=== PATIENT | female | born 1965 | race Caucasian/White ===

== ENCOUNTER 2025-03-02 15:38 | Outpatient (AMB) | payer BC, SELFPAY ==
--- NOTE | 2025-03-02 15:43 | A.OFFPC_ITS ---
Vital Signs 03/02/25 16:01 Height 5 ft 7.76 in Weight 190 lb BMI 29.1 BP 140/94 H Blood Pressure Location Rt brachial Position Sitting Respiration 16 Pulse 79 Pulse Source Pulse Oximeter Temp 98.1 F Temp Source Oral Pulse Oximetry (%) 98 Oxygen Delivery Method Room Air Intake Visit Reasons: DAIRY TESTER // Crohn's Disease Intake Note: establish care and crohn's disease Computer Hardware Developer Required: No Accompanied by: Self / Same As Patient Allergies doxycycline Allergy (Mild, Verified 03/02/25 15:51) mental health Sulfa (Sulfonamide Antibiotics) Allergy (Mild, Verified 03/02/25 15:51) advers reaction Medication List - Last Reconciled 03/02/25 by Cade Corcoran MD infliximab (Remicade) IV levothyroxine (Tirosint) 75 mcg PO DAILY liothyronine 5 mcg PO DAILY losartan 25 mg PO DAILY Tobacco use date assessed: 03/02/25 Dental Screening Dental Screen Date: 03/02/25 Did you have a dental visit in the last 12 months?: No Did you have a dental problem in the last 6 months where you did not have access to dental care?: No Was dental information given to patient?: No HPI HPI Comments History of Present Illness Details History of Present Illness The patient is a 60-year-old female presenting for the establishment of care and management of chronic conditions. Recently moved from [place] to [place] lives in [place] comes to establish care with a primary care doctor and specialist she has a history of Crohn's disease and receives infusions Crohn's disease: - The patient has a history of Crohn's d isease and is currently on Remicade therapy. - She recently moved from [place] to [facility] and needs to establish care with a ditch digger. Hypothyroidism: - The patient has hypothyroidism managed with liothyronine and levothyroxine due to absorption issues with standard medications. - She has been stable on this regimen fo r over five years. Hypertension: - The patient is on losartan for hyperte nsion management. - She reports recent stress and lack of sleep due to personal circumstances, which may have affected her blood pressure readings. 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 - She missed her last scheduled imaging due to relocation. Obstructive sleep apnea: - The patient uses a CPAP machine for ob structive sleep apnea and requires a pulmonology referral for continued care. Health Maintenance - Screening mammogram and ultrasound of the right breast for monitoring radial scar. - Comprehensive metabolic panel, complet e blood count, lipid panel, and other lab tests to monitor overall health. Review of Systems - Cardiovascular: Reports hypertension, denies chest pain. - Endocrine: Reports hypothyroidism, man aged with medication. - Gastrointestinal: Reports Crohn's dise ase, managed with Remicade. - Respiratory: Reports obstructive sleep apnea, uses CPAP. - Musculoskeletal: Reports joint and mus carlotta pain, possibly related to losartan. 10-point ROS reviewed and negative excep t as noted in HPI Past Medical History - Crohn's disease, managed with Remicade . - Hypothyroidism, managed with liothyron ine and levothyroxine. - Hypertension, managed with losartan. - Radial scar in the breast, monitored w ith imaging. - Obstructive sleep apnea, uses CPAP. Physical Exam General: Well-appearing, in no acute distress. Vital signs: Within normal limits. HEENT: Normocephalic, atraumatic. PERRLA, EOMI. Conjunctiva clear, sclera anicteric. Oropharynx clear, mucous membranes moist. TMs intact bilaterally. Neck: Supple, no lymphadenopathy, no thyromegaly, no JVD or carotid bruits. Cardiovascular: RRR, normal S1/S2, no murmurs, rubs, or gallops. Peripheral pulses 2+ and symmetric. No edema. Respiratory: Lungs clear to auscultation bilaterally, no wheezes, rales, or rhonchi. Normal effort. Abdomen: Soft, non-tender, non-distended. Normoactive bowel sounds. No hepatosplenomegaly, no masses. MSK: Full range of motion, no joint swelling or deformity. Normal gait. Skin: Warm, dry, intact. No rashes, lesions, or pallor. Neuro: Alert and oriented x3. Cranial nerves II-XII intact. Strength 5/5 throughout. Sensation intact. Reflexes 2+ symmetric. Normal coordination and gait. Psych: Appropriate mood and affect. Normal judgment and insight. Discussion Notes During the visit, we discussed the need for referrals to gastroenterology, endocrinology, and pulmonology to establish care for ongoing management of Crohn's disease, hypothyroidism, and obstructive sleep apnea. We also reviewed the importance of regular imaging for monitoring the radial scar in the breast. I recommended a comprehensive set of lab tests to assess overall health, including a complete blood count, metabolic panel, and lipid profile. We also discussed the potential use of CoQ10 to address muscle pain possibly related to losartan use. Plan 1. Crohn's Disease - Plan to establish care with a gastroen terologist for continued management of Crohn's disease and Remicade therapy which requires her to visit at [facility] 2. Hypothyroidism - Continue current thyroid hormone repla cement therapy with liothyronine and levothyroxine. - Referral to endocrinology for ongoing management. 3. Hypertension - Continue losartan for blood pressure m anagement. - Consider CoQ10 supplementation to addr ess muscle pain. 4. Other specified disorders of breast N64.89 - she has radial scarring of the right b reast which is followed with Q 6 monthly mammograms and ultrasound Continue regular imaging with mammograms and ultrasounds every six months. 5. Obstructive sleep apnea (adult) (pedi atric) G47.33 - Referral to pulmonology for continued management of obstructive sleep apnea and CPAP supplies. Patient Instructions - Follow up with gastroenterology, endoc rinology, and pulmonology as referred. - Continue current medications as prescr ibed. - Consider trying CoQ10 for muscle pain relief. - Schedule regular imaging for breast mo nitoring. - Complete lab tests as ordered to monit or overall health. [facility] Family History (Updated 03/02/25 @ 15:57 by Erin Torrez MA) Father Hypothyroid High blood pressure Mother Hypothyroid H/O: hysterectomy Social History (Updated 03/02/25 @ 15:57 by Erin Torrez MA) Housing: House Alcohol intake: current Alcohol intake frequency: a few times a month Patient Tobacco Use Status: Former Tobacco user service: No Current occupational status: retired Cognitive needs: No Hearing needs: No Vision needs: Yes (rxglasses) Questionnaire PHQ-9 Over the last 2 weeks, how often have you been bothered by any of the following problems? 1. Little interest or pleasure in doing things: not at all 2. Feeling down, depressed, or hopeless: several days 3. Trouble falling or staying asleep, or sleeping too much: several days 4. Feeling tired or having little energy: several days 5. Poor appetite or overeating: not at all 6. Feeling bad about yourself - or that you are a failure or have let yourself or your family down: several days 7. Trouble concentrating on things, such as reading the newspaper or watching television: several days 8. Moving or speaking so slowly that other people could have noticed. Or the opposite - being so fidgety or restless that you have been moving around a lot more than usual: not at all 9. Thoughts that you would be better off or of hurting yourself in some way: not at all Total score: 5 Depression Screening Interpretation: Positive Depression Screening Done: Yes Source: Developed by Drs. Niels Cooper, Mery Arauz, Pedro Sky and colleagues, with an educational serafin from [employer]. Thrive Questionnaire Date Thrive assessed: 03/02/25 I am a: Patient What is your living situation today?: I have a steady place to live Within the past 12 months, did the food you bought not last and you didn't have the money to get more?: Never true Within the past 12 months, did you worry whether your food would run out before you got money to buy more?: Never true Do you have trouble paying for medicines?: No Do you have trouble getting transportation to medical appointments?: No Do you have trouble paying your heating and electricity bill?: No Do you have trouble taking care of your child, family member or friend?: No Do you have trouble with day-to-day activities such as bathing, preparing meals, shopping, managing finances, etc.?: No Are you currently unemployed and looking for a job?: No Are you interested in more education?: No Please select the resources that you would like help with: None Currently or been in a relationship where the following occur: No concerns reported THRIVE Score: 0 AUDIT C Alcohol Use Questionnaire (AUDIT-C) 1. How often do you have a drink containing alcohol?: 2-4 times a month 2. How many drinks containing alcohol do you have on a typical day when you are drinking?: 1 or 2 3. How often do you have six or more drinks on one occasion?: Never Total Score: 2 GIUSEPPE-7 AMB Questionnaire GIUSEPPE-7 Date GIUSEPPE - 7 assessed: 03/02/25 Feeling nervous, anxious, or on edge: 1 = Several days Not being able to stop or control worryin = Several days Worrying too much about different things: 1 = Several days Trouble relaxin = Several days Being so restless that it is hard to sit still: 1 = Several days Becoming easily annoyed or irritable: 1 = Several days Feeling afraid as if something awful might happen: 1 = Several days Total GIUSEPPE-7 score (0-4 normal; 5-9 mild; 10-14 moderate; 15-21 severe): 7 Source: Developed by Drs. Niels Cooper, Mery Arauz, Pedro Sky and colleagues, with an educational serafin from [employer]. Physical exam (Primary Care) Vital Signs: Last Vital Signs Temp 98.1 F 03/02/25 16:01 Pulse 79 03/02/25 16:01 Resp 16 03/02/25 16:01 BP 140/94 H 03/02/25 16:01 Pulse Ox 98 03/02/25 16:01 Oxygen Delivery Method Room Air 03/02/25 16:01 BMI result Body Mass Index 29.1 Tobacco/Smoking Status: Tobacco use Status Tobacco use date assessed 03/02/25 03/02/25 15:47 Patient Tobacco Use Status Former Tobacco user 03/02/25 16:04 PHQ-9: PHQ-9 Score PHQ-9: Total score 5 03/02/25 15:47 Depression Screening Interpretation: Positive Thrive Assessment: Date of Thrive Assessment Date Thrive assessed 03/02/25 03/02/25 15:47 Currently or been in a relationship where the following occur: No concerns reported Coding Level of Care Code New Pt Level 3 (29285) Diagnoses Encounter to establish care Z76. Routine lab draw Z01.89 Encounter for screening, unspecified Z13.9 Counseling, unspecified Z71.9 Crohn's disease with complication, unspecified gastrointestinal tract location K50.919 Gastrointestinal tract location: unspecified location Digestive disease complication type: unspecified complication Hypothyroidism, unspecified type E03.9 Hypothyroidism type: unspecified Radial scar of right breast N64.89 Hypertension I10 Obstructive sleep apnea G47.33 Adjustment disorder F43.20 Assessment & Plan Assessment & Plan (1) Encounter to establish care: Code(s): Z76.89 - Persons encountering health services in other specified circumstances (2) Routine lab draw: Code(s): Z01.89 - Encounter for other specified special examinations (3) Encounter for screening, unspecified: Code(s): Z13.9 - Encounter for screening, unspecified (4) Counseling, unspecified: Code(s): Z71.9 - Counseling, unspecified (5) Crohn's disease: Code(s): K50.90 - Crohn's disease, unspecified, without complications Qualifiers: Gastrointestinal tract location: unspecified location Digestive disease complication type: unspecified complication Qualified Code(s): K50.919 - Crohn's disease, unspecified, with unspecified complications (6) Hypothyroid: Code(s): E03.9 - Hypothyroidism, unspecified Qualifiers: Hypothyroidism type: unspecified Qualified Code(s): E03.9 - Hypothyroidism, unspecified (7) Radial scar of right breast: Code(s): N64.89 - Other specified disorders of breast (8) Hypertension: Code(s): I10 - Essential (primary) hypertension (9) Obstructive sleep apnea: Code(s): G47.33 - Obstructive sleep apnea (adult) (pediatric) (10) Adjustment disorder: Code(s): F43.20 - Adjustment disorder, unspecified Plan Orders: Orders Complete Blood Count Auto Diff Today Z13.9 - Encounter for screening, unspecified, Z76.89 - Persons encountering health services in other specified circumstances Hemoglobin A1c Today Z13.9 - Encounter for screening, unspecified, Z76.89 - Persons encountering health services in other specified circumstances Hepatitis B Surface Antibody Today Z13.9 - Encounter for screening, unspecified, Z76.89 - Persons encountering health services in other specified circumstances Hepatitis C Antibody Today Z13.9 - Encounter for screening, unspecified, Z76.89 - Persons encountering health services in other specified circumstances Magnesium Today Z13.9 - Encounter for screening, unspecified, Z76.89 - Persons encountering health services in other specified circumstances UA CC w/rflx Micro + Cult Today Z13.9 - Encounter for screening, unspecified, Z76.89 - Persons encountering health services in other specified circumstances Vitamin D 1,25 dihydroxy Today Z13.9 - Encounter for screening, unspecified, Z76.89 - Persons encountering health services in other specified circumstances US breast RT complete Today N64.89 - Other specified disorders of breast Comprehensive Met. Panel Today Z13.9 - Encounter for screening, unspecified, Z76.89 - Persons encountering health services in other specified circumstances Hepatitis B Surface Antigen Today Z13.9 - Encounter for screening, unspecified, Z76.89 - Persons encountering health services in other specified circumstances HIV Ab/Ag Today Z13.9 - Encounter for screening, unspecified, Z76.89 - Persons encountering health services in other specified circumstances Lipid Panel Today Z13.9 - Encounter for screening, unspecified, Z76.89 - Persons encountering health services in other specified circumstances Syphilis Screen Today Z13.9 - Encounter for screening, unspecified, Z76.89 - Persons encountering health services in other specified circumstances Vitamin B12 and Folate Today Z13.9 - Encounter for screening, unspecified, Z76.89 - Persons encountering health services in other specified circumstances MM screening mammo BI Today Z12.31 - Encounter for screening mammogram for malignant neoplasm of breast, Z13.9 - Encounter for screening, unspecified TSH reflex Free T4 Today Z76.89 - Persons encountering health services in other specified circumstances Referrals Gastroenterology Referral K50.90 - Crohn's disease, unspecified, without complications Endocrinology Referral E03.9 - Hypothyroidism, unspecified Pulmonology Referral G47.33 - Obstructive sleep apnea (adult) (pediatric)
[2025-03-02 16:01] VITALS: BP 140/94; PULSE 79; RESP 16; TEMP 36.7; O2SAT 98; BMI 29.1
--- OUTSIDE RECORDS SUMMARY | 2025-03-02 19:01 | XMS_ITS | Encounter Summary ---
Author Organization [facility] Health Address [address] [place] [address] Care Team Providers Care Musical Instruments Assembler Name Role Phone Unavailable Primary Care Provider Unavailabl e Prior Encounters Date Type Department Care Team Description 07/05/2019 Converted 13x Documents [facility] [address] [place] [address] <No scans attached> 07/05/2019 Converted CPS Chart Documents [facility] [address] [place] [address] <No scans attached> Plan of Treatment Not on file Procedures Procedure Name Priority Date/Time Associated Diagnosis Comments 31 O AMALGAM 1 SURFACE Routine 2 2:00 AM CDT 31 B AMALGAM 1 SURFACE Routine 2 2:00 AM CDT 30 B AMALGAM 1 SURFACE Routine 2 2:00 AM CDT 19 B AMALGAM 1 SURFACE Routine 2 2:00 AM CDT 18 B AMALGAM 1 SURFACE Routine 2 2:00 AM CDT SCALING IN PRESENCE OF GENERALIZED MODERATE OR SEVERE GINGIVAL INFLAMMATION Routine 09/03/2021 2:00 AM CDT ORAL HYGIENE INSTRUCTIONS Routine 2021 2:00 AM CDT 1 FM IRR W/GROSS SCALE Routine 2 2:00 AM CDT COMPREHENSIVE ORAL EVALUATION - NEW OR ESTABLISHED PATIENT Routine 09/03/2021 2:00 AM CDT PANORAMIC RADIOGRAPHIC IMAGE Routine 09/03/2021 2:00 AM CDT INTRAORAL - COMPREHENSIVE SERIES OF RADIOGRAPHIC IMAGES Routine 09/03/2021 2:00 AM CDT INTRAORAL PHOTO Routine 09/03/2021 2:00 AM CDT INTRAORAL PHOTO Routine 09/03/2021 2:00 AM CDT INTRAORAL PHOTO Routine 09/03/2021 2:00 AM CDT INTRAORAL PHOTO Routine 09/03/2021 2:00 AM CDT 2 DOL COMPOSITE FILLING Routine 09/04/19 2:00 AM CDT 15 LO COMPOSITE FILLING Routine 09/04/19 2:00 AM CDT 30 O COMPOSITE FILLING Routine 2 2:00 AM CDT 18 O COMPOSITE FILLING Routine 2 2:00 AM CDT 14 O COMPOSITE FILLING Routine 2 2:00 AM CDT 3 O COMPOSITE FILLING Routine 09/03/2021 2:00 AM CDT CANCELLED APPOINTMENT Routine 07/10/2020 2:00 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
--- OUTSIDE RECORDS SUMMARY | 2025-03-02 19:01 | XMS_ITS | Clinical Summary ---
Author Organization [facility] Health Address [address] [facility] [place] [address] Care Team Providers Care Collar Tacker Name Role Phone Unavailable Primary Care Provider Unavailabl e Social History Tobacco Use Types Packs/Day Years Used Date Smoking Tobacco: Never Assessed Comments Unknown Sex and Gender Information Value Date Recorded Sex Assigned at Not on file Legal Sex Female 9:06 PM PST Gender Identity Not on file Sexual Orientation Not on file Plan of Treatment Not on file Insurance [facility] PPO
== END 2025-03-02 16:37 | disposition home or self-care (01) ==
LOC: HO.HMCFMS 15:39
PROVIDERS: PCP Student in an Organized Health Care Education/Training Program; Visit Provider Student in an Organized Health Care Education/Training Program
DX: K50.919 Crohn's disease, unspecified, with unspecified complications (principal); E03.9 Hypothyroidism, unspecified; N64.89 Other specified disorders of breast; I10 Essential (primary) hypertension; G47.33 Obstructive sleep apnea (adult) (pediatric); F43.20 Adjustment disorder, unspecified

== ENCOUNTER 2025-03-08 11:55 | Outpatient (REF) | payer BC, SELFPAY ==
--- OUTSIDE RECORDS SUMMARY | 2025-03-08 14:48 | XMS_ITS | Clinical Summary ---
Author Organization [facility] Health Address [address] [facility] [place] [address] Care Team Providers Care Certified Alcohol Counselor Name Role Phone Unavailable Primary Care Provider Unavailabl e Social History Tobacco Use Types Packs/Day Years Used Date Smoking Tobacco: Never Assessed Comments Unknown Sex and Gender Information Value Date Recorded Sex Assigned at Not on file Legal Sex Female 9:06 PM PST Gender Identity Not on file Sexual Orientation Not on file Plan of Treatment Not on file Insurance [facility] PPO
--- OUTSIDE RECORDS SUMMARY | 2025-03-08 14:48 | XMS_ITS | Encounter Summary ---
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
[2025-03-08 18:41] LABS: MANUAL DIFF FLAG NO
[2025-03-08 18:43] LABS: Hematocrit 40.1 % (37.0-47.0); Hemoglobin 12.8 g/dl (12.0-16.0); Imm Gran Abs Auto 0.02 X10*3/uL (0.00-0.03); Imm Gran Pct Auto 0.3 % (0.0-0.4); Lymphocytes Absolute Auto 2.8 X10*3/uL (1.2-4.9); Mean Corpuscular HGB Conc 31.9 g/dl (31.0-35.0); Mean Corpuscular Hemoglobin 27.5 pg (27.0-33.0); Mean Corpuscular Volume 86.1 fL (80.0-98.0); NRBC Abs Auto 0.000 X10*3/uL (0.0-0.012); NRBC Pct Auto 0.0 /100WBC (0.0-0.2); Platelet Count 299 X10*3/uL (160-400); Red Blood Count 4.66 X10*6/uL (4.20-5.50); White Blood Count 7.3 X10*3/uL (4.8-10.8)
[2025-03-08 18:55] LABS: Appearance Urine Clear; Glucose Urine UA Negative (Negative); PH 6.0 (5.0-9.0); Specific Gravity - Urine 1.020 (1.005-1.025)
[2025-03-08 19:05] LABS: Hemoglobin A1C 133.7185 umol/L; Total Hemoglobin (HGBA1C) 3350.0970 umol/L
[2025-03-08 19:08] LABS: Alanine Aminotransferase 24 U/L (0-31); Albumin Level 4.6 g/dL (3.5-5.0); Alkaline Phosphatase 60 U/L (39-117); Anion Gap 13 (12-20); Aspartate Amino Transferase 27 U/L (5-31); Blood Urea Nitrogen 17 mg/dL (9-16); Calcium 9.5 mg/dL (8.4-10.2); Carbon Dioxide 27 mmol/L (22-29); Chloride 107 mmol/L (96-108); Cholesterol 225 mg/dL (<200); Estimated Glomerular Filt Rate > 60; HDL Cholesterol 82 mg/dL (>40); Magnesium 2.0 mg/dL (1.6-2.6); Potassium 3.6 mmol/L (3.3-5.1); Sodium 143 mmol/L (135-145); Total Protein 8.0 g/dL (6.5-8.0); Triglycerides 118 mg/dL (<150)
[2025-03-08 19:35] LABS: Folate 12.1 ng/mL (> or = 4.0); Vitamin B12 593 pg/mL (200-900)
[2025-03-09 08:54] LABS: HBS Num1 0.72 mIU/mL (0-7.99); HIV Num 1 0.06 S/CO (0.00-0.99); ~HepC Num1 0.07 S/CO (0.00-0.79); ~Hepatitis B Surface Antibody NONREACTIVE (Nonreactive); ~Hepatitis C Antibody Nonreactive (Nonreactive)
[2025-03-09 09:11] LABS: Syphilis Screen Nonreactive (Nonreactive)
[2025-03-09 09:56] LABS: HBsAGNum1 0.28 S/CO (0.00-0.99); Hepatitis B Surface Antigen Negative (Negative)
[2025-03-12 15:18] LABS: VITAMIN D (1,25 OH) D3 46 pg/mL; Vit D (1,25-Dihydroxy) Total 46 pg/mL (18-72); Vitamin D (1,25 OH) D2 <8 pg/mL
== END 2025-03-08 11:56 | disposition home or self-care (01) ==
LOC: HO.HKASLDS 11:55
PROVIDERS: Visit Provider Student in an Organized Health Care Education/Training Program
DX: Z01.84 Encounter for antibody response examination (principal); Z11.4 Encounter for screening for human immunodeficiency virus [HIV]; Z13.29 Encounter for screening for other suspected endocrine disorder; Z13.6 Encounter for screening for cardiovascular disorders; Z13.1 Encounter for screening for diabetes mellitus; Z13.89 Encounter for screening for other disorder; Z76.89 Persons encountering health services in other specified circumstances
CPT/HCPCS: 36415; 80053; 80061; 81003; 82607; 82652; 82746; 83036; 83735; 84443; 85025; 86706; 86780; 86803; 87340; 87389

== ENCOUNTER 2025-03-17 10:29 | Outpatient (AMB) | payer BC, SELFPAY ==
--- NOTE | 2025-03-17 10:48 | A.OFFVIS_ITS ---
Intake Visit Reasons: Crohn's disease Intake Note: Patient new consult for Crohn's disease. Patient cc: abdominal pain with bloating, with loose stool. Meat Carrier Required: No Accompanied by: Spouse Allergies doxycycline Allergy (Mild, Verified 03/02/25 15:51) mental health Sulfa (Sulfonamide Antibiotics) Allergy (Mild, Verified 03/02/25 15:51) advers reaction HPI HPI Crohn's disease: Details: Patient is a 62-year-old female with PMH of diabetes, thyroid disease, hyperlipidemia and GORDO on CPAP. Referred by PCP for further evaluation of rectal pain. Patient is accompanied by Salo. Jyothi presents after relocation from [place], requesting immediate reestablishment of biologic maintenance therapy for her Crohn?s and ulcerative colitis with J-pouch. Last Remicade infusion was 01-12-2025; missed 03-09-2025 scheduled infusion by one week. She reports generally well-controlled GI symptoms on Remicade, with only minor baseline discomfort. Over the past few months, she describes intermittent sharp pains under the left ribs, suspected related to food intolerance (notably salads and slower-moving foods), consistent with possible partial stricture or post- surgical scarring; symptoms resolve spontaneously and frequency has not acutely worsened. She notes stable pouch function with no significant change in bowel habits, but reports occasional chronic rectal cuff irritation?unchanged and not severe, with no new visible blood per rectum. Weight has declined by ~5 lbs over several months, attributed to improved activity levels following a deviated septum repair; weight loss appears intentional and is not accompanied by other constitutional symptoms. Admits to history of pouch-related minor ulcerations but otherwise reports recent surveillance endoscopy as clear. No new extraintestinal manifestations. Comorbid conditions include HTN and hypothyroidism, both medically managed. No sedative allergies but does have post-procedural sedation ?hangover.? Patient denies: fever/chills, n/v, appetite changes, pyrosis, regurgitation,dysphasia, unintentional wt loss. Social hx: -ETOH use, 1x/week -denies recreational drug use -former smoker, cessation 25 years ago. - family hx as below -denies personal hx of CA -denies significant cardiopulmonary history -tolerated anesthesia in the past without difficulty. [facility] Medical History (Updated 03/17/25 @ 16:51 by Sarah Reyez CNP) Colon cancer screening Abdominal pain Inflammatory bowel disease Surgical History (Updated 03/17/25 @ 11:01 by Jenifer Suárez) History of total colectomy Hx of cholecystectomy History of esophagogastroduodenoscopy (EGD) Hx of colonoscopy Family History (Updated 03/17/25 @ 11:11 by Sarah Reyez CNP) Father Hypothyroid High blood pressure Mother Hypothyroid H/O: hysterectomy Sister IBD (inflammatory bowel disease) Social History Housing: House Alcohol intake: current Alcohol intake frequency: a few times a month Patient Tobacco Use Status: Former Tobacco user service: No Current occupational status: retired Cognitive needs: No Hearing needs: No Vision needs: Yes (rxglasses) Review of Systems Const Reports as per HPI ENT Reports as per HPI Card Reports as per HPI Resp Reports as per HPI GI Reports as per HPI Reports as per HPI Physical Exam Const General: healthy appearing, no acute distress and well developed Nutritional Appearance: average body habitus Orientation/consciousness: patient oriented x3 HEENT Head: Yes normal to inspection, Yes normocephalic and Yes atraumatic Face and sinus: Yes normal facial exam Eyes General: appearance normal, both eyes and all related structures Neck Neck: Yes normal visual inspection Resp Effort & Inspection: normal respiratory effort, able to speak in complete sentences, no tracheal deviation and symmetric chest movement Cardio Jugular venous distension: no JVD GI Inspection: Yes normal to inspection and No distended Palpation (GI): Soft to palpation, not firm, nontender and No hepatosplenomegaly present Auscultation: normal bowel sounds Neuro General: patient oriented x3 Gait exam (Neuro): Normal gait present Psych Appearance: grossly normal Mental Status: mental status grossly normal Speech and movement: Normal speech and movement present Affect: normal affect Attitude: cooperative Thought process: Normal thought process present Thought content: Normal thought content present Insight: Good insight present (Psych) Judgement: Good judgement present (Psych) Assessment & Plan Assessment & Plan (1) Inflammatory bowel disease: Code(s): K52.9 - Noninfective gastroenteritis and colitis, unspecified Category: Medical Plan: Crohn?s disease with J-pouch, controlled with Remicade; currently delayed on scheduled maintenance infusion; mild, stable pouch-related and possible post- surgical GI symptoms. Additional Testing: - Order inflammatory markers (CBC, CRP/ESR) - Stool studies for calprotectin, pathogens as baseline - Request transfer of GI records, prior surgery and endoscopic reports - Schedule surveillance pouchoscopy/endoscopy per standard interval Medication Management: - Expedite Remicade infusion resumption ([id number]); coordinate with [facility] infusion clinic once weight is confirmed. - Continue current antihypertensive and thyroid replacement Lifestyle Recommendations: - Maintain tailored diet per pouch tolerance (avoid problematic high-residue foods like salads) - Encourage clear liquids and electrolyte (e.g., Gatorade) for bowel prep per instructions before endoscopy - Stay hydrated, avoid dehydration especially during bowel prep Follow-Up: - Post-infusion follow-up in ~2 months to confirm stability and review labs/records; earlier PRN for sx changes or infusion delays (2) Abdominal pain: Code(s): R10.9 - Unspecified abdominal pain Category: Medical Qualifiers: Abdominal location: left upper quadrant Qualified Code(s): R10.12 - Left upper quadrant pain Plan: Episodic sharp pain with certain foods, resolved spontaneously; long post- surgical history Additional Testing: - Monitor for evolution of obstructive symptoms - Consider imaging (abdominal X-ray, CT or pouchogram) if symptoms worsen or obstructive pattern develops Medication Management: - Supportive only; no new Rx Lifestyle Recommendations: - Continue to avoid known food triggers Follow-Up: - Watchful waiting; prompt eval if increased or persistent obstructive symptoms (3) Colon cancer screening: Code(s): Z12.11 - Encounter for screening for malignant neoplasm of colon Category: Medical Plan: Ongoing monitoring of J-pouch, review last endoscopy report Additional Testing: - Confirm timing/frequency once outside records obtained; proceed with endoscopy as per last braille duplicating machine operator?s recs and local protocol Medication Management: - Discused Miralax-based prep during visit. Will confirm with endoscopist on prep preference given surgical hx. Education on no solid food day prior; clear liquids per protocol; avoid red/blue/purple/orange colors Lifestyle Recommendations: - Ensure adequate hydration during prep; arrange reliable transportation due to anesthesia plan Follow-Up: - Review scope findings once available Plan Follow-up in 2 months or sooner as needed Time: I spent a total of 35 minutes on the date of encounter which includes: Preparing to see the patient (reviewed previous documentation, test results and medical history) Performing a medically appropriate exam and/or evaluation Ordering medications, tests, and procedures Documenting clinical information in the health record Orders: Orders Calprotectin, Fecal 03/17/25 K52.9 - Noninfective gastroenteritis and colitis, unspecified C Reactive Protein 03/17/25 K52.9 - Noninfective gastroenteritis and colitis, unspecified Coding Level of Care Code New Pt New Pt Level 3 (71315) Patient Type New Diagnoses Inflammatory bowel disease K52.9 Left upper quadrant abdominal pain R10.12 Abdominal location: left upper quadrant Colon cancer screening Z12.11
--- OUTSIDE RECORDS SUMMARY | 2025-03-17 12:13 | XMS_ITS | Encounter Summary ---
Author Organization [facility] Health Address [address] [place] [address] Care Team Providers Care Holistic Nutritionist Name Role Phone Unavailable Primary Care Provider Unavailabl e Prior Encounters Date Type Department Care Team Description 07/05/2019 Converted 13x Documents [facility] [address] [place] [address] <No scans attached> 07/05/2019 Converted CPS Chart Documents [facility] [address] [place] [address] <No scans attached> Plan of [...] CDT CANCELLED APPOINTMENT Routine 07/10/2020 2:00 AM SENIOR LIBRARIAN Visit Diagnoses Not on file Insurance [facility] PPO
--- OUTSIDE RECORDS SUMMARY | 2025-03-17 12:13 | XMS_ITS | Clinical Summary ---
Author Organization [facility] Health Address [address] [facility] [place] [address] Care Team Providers Care Solderer Production Line Name Role Phone Unavailable Primary Care Provider Unavailabl e Social History Tobacco Use Types Packs/Day Years Used Date Smoking Tobacco: Never Assessed Comments Unknown Sex and Gender Information Value Date Recorded Sex Assigned at Not on file Legal Sex Female 9:06 PM PST Gender Identity Not on file Sexual Orientation Not on file Plan of Treatment Not on file Insurance [facility] PPO
== END 2025-03-17 11:29 | disposition home or self-care (01) ==
LOC: HO.HGI 10:29
PROVIDERS: PCP Student in an Organized Health Care Education/Training Program; Visit Provider Nurse Practitioner Family
DX: K52.9 Noninfective gastroenteritis and colitis, unspecified (principal); R10.12 Left upper quadrant pain
CPT/HCPCS: 99203

== ENCOUNTER 2025-03-21 11:38 | Outpatient (REF) | payer BC, SELFPAY ==
--- OUTSIDE RECORDS SUMMARY | 2025-03-21 14:14 | XMS_ITS | Clinical Summary ---
Author Organization [facility] Health Address [address] [facility] [place] [address] Care Team Providers Care Chain Person Name Role Phone Unavailable Primary Care Provider Unavailabl e Social History Tobacco Use Types Packs/Day Years Used Date Smoking Tobacco: Never Assessed Comments Unknown Sex and Gender Information Value Date Recorded Sex Assigned at Not on file Legal Sex Female 9:06 PM PST Gender Identity Not on file Sexual Orientation Not on file Plan of Treatment Not on file Insurance [facility] PPO
--- OUTSIDE RECORDS SUMMARY | 2025-03-21 14:14 | XMS_ITS | Encounter Summary ---
Author Organization [facility] Health Address [address] [place] [address] Care Team Providers Care General Expeditor Name Role Phone Unavailable Primary Care Provider Unavailabl e Prior Encounters Date Type Department Care Team Description 07/05/2019 Converted 13x Documents [facility] [address] [place] [address] <No scans attached> 07/05/2019 Converted CPS Chart Documents [facility] [address] [place] [address] <No scans attached> Plan of [...] CDT CANCELLED APPOINTMENT Routine 07/10/2020 2:00 AM LADLE FILLER Visit Diagnoses Not on file Insurance PPO
== END 2025-03-21 11:39 | disposition home or self-care (01) ==
LOC: HO.LAB 11:38
PROVIDERS: PCP Student in an Organized Health Care Education/Training Program; Visit Provider Nurse Practitioner Family
DX: K52.9 Noninfective gastroenteritis and colitis, unspecified (principal)
CPT/HCPCS: 36415; 86140

== ENCOUNTER 2025-03-24 11:19 | Outpatient (AMB) | payer BC, SELFPAY ==
[2025-03-24 11:23] VITALS: BP 121/80; PULSE 85; TEMP 36.8; O2SAT 99; BMI 28.3
--- NOTE | 2025-03-24 11:23 | A.OFFPC_ITS ---
Vital Signs 03/24/25 11:23 Height 5 ft 7.76 in Weight 185 lb BMI 28.3 BP 121/80 Blood Pressure Location Rt brachial Position Sitting Pulse 85 Pulse Source Pulse Oximeter Temp 98.2 F Temp Source Oral Pulse Oximetry (%) 99 Oxygen Delivery Method Room Air Intake Visit Reasons: f/u after labs Intake Note: [facility] and crohn's disease Willower Required: No Accompanied by: Self / Same As Patient Allergies doxycycline Allergy (Mild, Verified 03/24/25 11:29) mental health Sulfa (Sulfonamide Antibiotics) Allergy (Mild, Verified 03/24/25 11:29) advers reaction Tobacco use date assessed: 03/24/25 Dental Screening Dental Screen Date: 03/24/25 Did you have a dental visit in the last 12 months?: No Did you have a dental problem in the last 6 months where you did not have access to dental care?: No Was dental information given to patient?: No HPI HPI Comments History of Present Illness Details History of Present Illness The patient is a 60-year-old female presenting for follow-up on lab results and management of chronic conditions. Prediabetes: - The patient's hemoglobin A1c is 5.8%, placing her in the prediabetes range. - She has not previously been diagnosed with diabetes, and this is a new finding. - The patient attributes dietary changes over the past six months due to moving and travel as potential contributors. Hyperlipidemia: - The patient's cholesterol level is 225 mg/dL, with LDL cholesterol at 120 mg/dL, both above the recommended levels. - The test was conducted non-fasting, wh ich may affect the results. Crohn's Disease: - The patient has a history of Crohn's d isease, which complicates dietary management. - She reports difficulty in maintaining a proper diet due to the condition. Review of Systems 10-point ROS reviewed and negative excep t as noted in HPI Past Medical History - Crohn's Disease Health Maintenance - Referral to a human resources consultant for nutritiona l counseling due to prediabetes. - Repeat laboratory tests in six months to monitor hemoglobin A1c and cholesterol levels. Physical Exam General: Well-appearing, in no acute distress. Vital signs: Within normal limits. HEENT: Normocephalic, atraumatic. PERRLA, EOMI. Conjunctiva clear, sclera anicteric. Oropharynx clear, mucous membranes moist. TMs intact bilaterally. Neck: Supple, no lymphadenopathy, no thyromegaly, no JVD or carotid bruits. Cardiovascular: RRR, normal S1/S2, no murmurs, rubs, or gallops. Peripheral pulses 2+ and symmetric. No edema. Respiratory: Lungs clear to auscultation bilaterally, no wheezes, rales, or rhonchi. Normal effort. Abdomen: Soft, non-tender, non-distended. Normoactive bowel sounds. No hepatosplenomegaly, no masses. MSK: Full range of motion, no joint swelling or deformity. Normal gait. Skin: Warm, dry, intact. No rashes, lesions, or pallor. Neuro: Alert and oriented x3. Cranial nerves II-XII intact. Strength 5/5 throughout. Sensation intact. Reflexes 2+ symmetric. Normal coordination and gai t. Psych: Appropriate mood and affect. Normal judgment and insight. Plan 1. Prediabetes - Plan includes referral to a human resources consultant for nutritional counseling to address prediabetes. - Repeat hemoglobin A1c in six months to monitor progression. 2. Hyperlipidemia - Dietary modifications recommended to l ower cholesterol levels. - Repeat lipid panel in six months to as sess changes. 3. Crohn's Disease - Continue current management with gastr oenterologist oversight. - Consider dietary adjustments to manage symptoms. Discussion Notes I discussed with the patient the results of her recent lab tests, highlighting the prediabetes diagnosis with an A1c of 5.8% and elevated cholesterol levels. We agreed on a referral to a human resources consultant for nutritional counseling to address these issues. I also recommended repeating the lab tests in six months to monitor her progress. The patient was advised to continue her current management for Crohn's disease with her curriculum advisory teacher. Patient was informed and verbally consented to the use of an ambient scribe for clinic note documentation during this visit. Patient Instructions - Follow up with the human resources consultant for nutri tional counseling. - Repeat lab tests in six months to [facility] k A1c and cholesterol levels. - Continue current treatment plan for Cr ohn's disease. - Contact the clinic if any new symptoms arise or for further questions. Total time spent caring for the patient today was 30 minutes. This includes time spent before the visit reviewing the chart, time spent documenting, and time spent reviewing laboratory results, diagnostic imaging, medications, performing a medically necessary evaluation, counseling on diagnoses, care coordination, ordering appropriate tests, ordering appropriate medications, review of tests performed by other providers, reporting test results with the patient. [facility] Medical History Crohn's disease Colon cancer screening Abdominal pain Inflammatory bowel disease Surgical History History of total colectomy Hx of cholecystectomy History of esophagogastroduodenoscopy (EGD) Hx of colonoscopy Family History Father Hypothyroid High blood pressure Mother Hypothyroid H/O: hysterectomy Sister IBD (inflammatory bowel disease) Social History Housing: House Alcohol intake: current Alcohol intake frequency: a few times a month Patient Tobacco Use Status: Former Tobacco user service: No Current occupational status: retired Cognitive needs: No Hearing needs: No Vision needs: Yes (rxglasses) Questionnaire PHQ-9 Over the last 2 weeks, how often have you been bothered by any of the following problems? 1. Little interest or pleasure in doing things: not at all 2. Feeling down, depressed, or hopeless: several days 3. Trouble falling or staying asleep, or sleeping too much: several days 4. Feeling tired or having little energy: several days 5. Poor appetite or overeating: not at all 6. Feeling bad about yourself - or that you are a failure or have let yourself or your family down: several days 7. Trouble concentrating on things, such as reading the newspaper or watching television: several days 8. Moving or speaking so slowly that other people could have noticed. Or the opposite - being so fidgety or restless that you have been moving around a lot more than usual: not at all 9. Thoughts that you would be better off or of hurting yourself in some way: not at all Total score: 5 Depression Screening Interpretation: Positive Depression Screening Done: Yes Source: Developed by Drs. Niels Cooper, Mery Arauz, Pedro Sky and colleagues, with an educational serafin from [employer]. Thrive Questionnaire Date Thrive assessed: 03/24/25 I am a: Patient What is your living situation today?: I have a steady place to live Within the past 12 months, did the food you bought not last and you didn't have the money to get more?: Never true Within the past 12 months, did you worry whether your food would run out before you got money to buy more?: Never true Do you have trouble paying for medicines?: No Do you have trouble getting transportation to medical appointments?: No Do you have trouble paying your heating and electricity bill?: No Do you have trouble taking care of your child, family member or friend?: No Do you have trouble with day-to-day activities such as bathing, preparing meals, shopping, managing finances, etc.?: No Are you currently unemployed and looking for a job?: No Are you interested in more education?: No Please select the resources that you would like help with: None Currently or been in a relationship where the following occur: No concerns reported THRIVE Score: 0 AUDIT C Alcohol Use Questionnaire (AUDIT-C) 1. How often do you have a drink containing alcohol?: 2-4 times a month 2. How many drinks containing alcohol do you have on a typical day when you are drinking?: 1 or 2 3. How often do you have six or more drinks on one occasion?: Never Total Score: 2 GIUSEPPE-7 AMB Questionnaire GIUSEPPE-7 Date GIUSEPPE - 7 assessed: 03/24/25 Feeling nervous, anxious, or on edge: 1 = Several days Not being able to stop or control worryin = Several days Worrying too much about different things: 1 = Several days Trouble relaxin = Several days Being so restless that it is hard to sit still: 1 = Several days Becoming easily annoyed or irritable: 1 = Several days Feeling afraid as if something awful might happen: 1 = Several days Total GIUSEPPE-7 score (0-4 normal; 5-9 mild; 10-14 moderate; 15-21 severe): 7 Source: Developed by Drs. Niels Cooper, Mery Arauz, Pedro Sky and colleagues, with an educational serafin from [employer]. Physical exam (Primary Care) Vital Signs: Last Vital Signs Temp 98.2 F 03/24/25 11:23 Pulse 85 03/24/25 11:23 BP 121/80 03/24/25 11:23 Pulse Ox 99 03/24/25 11:23 Oxygen Delivery Method Room Air 03/24/25 11:23 BMI result Body Mass Index 28.3 Tobacco/Smoking Status: Tobacco use Status Tobacco use date assessed 03/24/25 03/24/25 11:31 Patient Tobacco Use Status Former Tobacco user 03/24/25 11:31 PHQ-9: PHQ-9 Score PHQ-9: Total score 5 03/24/25 11:31 Depression Screening Interpretation: Positive Thrive Assessment: Date of Thrive Assessment Date Thrive assessed 03/24/25 03/24/25 11:31 Currently or been in a relationship where the following occur: No concerns reported Coding Level of Care Code Est Pt Level 4 (37252) Diagnoses Crohn's disease K50.90 Inflammatory bowel disease K52.9 Prediabetes R73.03 Hyperlipidemia E78.5 Assessment & Plan Assessment & Plan (1) Crohn's disease: Code(s): K50.90 - Crohn's disease, unspecified, without complications Category: Medical (2) Inflammatory bowel disease: Code(s): K52.9 - Noninfective gastroenteritis and colitis, unspecified Category: Medical (3) Prediabetes: Code(s): R73.03 - Prediabetes (4) Hyperlipidemia: Code(s): E78.5 - Hyperlipidemia, unspecified Plan Orders: Referrals Nurse Navigator Referral E78.5 - Hyperlipidemia, unspecified, K50.90 - Crohn's disease, unspecified, without complications, R03.0 - Elevated blood-pressure reading, without diagnosis of hypertension
== END 2025-03-24 11:39 | disposition home or self-care (01) ==
LOC: HO.HMCFMS 11:19
PROVIDERS: PCP Student in an Organized Health Care Education/Training Program; Visit Provider Student in an Organized Health Care Education/Training Program
DX: K50.90 Crohn's disease, unspecified, without complications (principal); K52.9 Noninfective gastroenteritis and colitis, unspecified; R73.03 Prediabetes; E78.5 Hyperlipidemia, unspecified

== ENCOUNTER 2025-03-25 12:37 | Outpatient (REF) | payer BC, SELFPAY ==
[2025-04-01 17:58] LABS: Calprotectin, Fecal 782 mcg/g
== END 2025-03-25 12:38 | disposition home or self-care (01) ==
LOC: HO.LNP 12:37
PROVIDERS: Visit Provider Nurse Practitioner Family
DX: K52.9 Noninfective gastroenteritis and colitis, unspecified (principal)
CPT/HCPCS: 83993

== ENCOUNTER 2025-04-25 08:52 | Outpatient (REF) | payer BC, SELFPAY ==
--- NOTE | ~2025-04-25 | US_ITS ---
EXAMINATION(S): 1. MM DIAGNOSTIC DIGITAL BREAST TOMOSYNTHESIS, BILATERAL 2. TARGETED ULTRASOUND OF THE RIGHT BREAST CLINICAL INFORMATION: Prior images/report from outside facility in [place] are incomplete. -Last right mammogram/ultrasound on August 17, 2024 describes 1.2 cm architectural distortion at 4 o'clock position 4 cm from the nipple. Ultrasound-guided needle core biopsy on March 29, 2024 with open coil clip placement. Pathology results showed radial sclerosing lesion (radial scar). Patient elected for follow-up rather than excision after discussion with surgery. A short-term six month follow-up was recommended. -Ultrasound-guided needle core biopsy of the additional area of the right breast at 6 o'clock position shows benign results. COMPARISON: Comparison made to multiple prior, most recent right diagnostic mammogram/ultrasound on August 17, 2024, and most remote bilateral mammogram on August 16, 2021. TECHNIQUE: Digital breast tomosynthesis is performed in both the mediolateral oblique and craniocaudal views along with computer-aided detection (CAD). Synthesized 2D images are generated from the tomosynthesis. FINDINGS: BREAST COMPOSITION: There are scattered areas of fibroglandular density. RIGHT BREAST: Previously suggested architectural distortion in the lower inner quadrant middle depth, approximately 5 cm from the nipple, associated with open coil clip, is similar to prior examination in August 2024 (MLO , CC ). Additional coil shape clip from prior needle core biopsy. No new suspicious mammographic findings. Targeted ultrasound of the right breast was performed at the location of the previously described biopsied sonographic finding. The survey shows the ill-defined hypoechoic area, described as region of distortion adjacent to the biopsy clip at 4 o'clock position 4 cm from the nipple. Difficult to obtain exact measurements. LEFT BREAST: No significant masses, suspicious calcifications or other abnormalities are seen. US/US Breast RT Limited Mamm Only IMPRESSION: RIGHT BREAST: Biopsy proven area of radial sclerosing lesion associated with open coil clip in the lower inner quadrant of the breast, at 4 o'clock position 4 cm from the nipple is not significantly changed from August 2024. Direct comparison of measurements is difficult due to ill-defined margins. A 6-month follow-up mammogram and ultrasound is recommended. LEFT BREAST: Negative, no mammographic evidence of malignancy. Normal interval follow-up is recommended in 12 months. ASSESSMENT: BI-RADS: Category 3: Probably benign RECOMMENDATION: 6 Month F/U Results were provided to the patient at time of visit by the technologist. Electronically signed by: Damián Woods MD 04/25/2025 10:35 AM ELSA BELTRÁN
--- OUTSIDE RECORDS SUMMARY | 2025-04-25 09:20 | XMS_ITS | Encounter Summary ---
Author Organization [facility] Health Address [address] [place] [address] Care Team Providers Care Top Installer Name Role Phone Unavailable Primary Care Provider Unavailabl e Prior Encounters Date Type Department Care Team Description 07/05/2019 Converted 13x Documents [facility] [address] [place] [address] <No scans attached> 07/05/2019 Converted CPS Chart Documents [facility] [address] [place] [address] <No scans attached> Plan of [...] CANCELLED APPOINTMENT Routine 07/10/2020 2:00 AM SENIOR INVESTMENT ANALYST Visit Diagnoses Not on file Insurance [facility] PPO
--- OUTSIDE RECORDS SUMMARY | 2025-04-25 09:20 | XMS_ITS | Clinical Summary ---
Author Organization [facility] Health Address [address] [facility] [place] [address] Care Team Providers Care Salad Counter Attendant Name Role Phone Unavailable Primary Care Provider Unavailabl e Social History Tobacco Use Types Packs/Day Years Used Date Smoking Tobacco: Never Assessed Comments Unknown Sex and Gender Information Value Date Recorded Sex Assigned at Not on file Legal Sex Female 9:06 PM PST Gender Identity Not on file Sexual Orientation Not on file Plan of Treatment Not on file Insurance [facility] PPO
== END 2025-04-25 08:53 | disposition home or self-care (01) ==
LOC: HO.MAMMO 08:52
PROVIDERS: PCP Student in an Organized Health Care Education/Training Program; Visit Provider Student in an Organized Health Care Education/Training Program
DX: N64.89 Other specified disorders of breast (principal); Z87.19 Personal history of other diseases of the digestive system
CPT/HCPCS: 76642; 77062; 77066

== ENCOUNTER → 2025-04-25 09:00 | Outpatient (BNV) | payer BC, SELFPAY | PROVIDERS: PCP Student in an Organized Health Care Education/Training Program; Visit Provider Radiology Body Imaging | DX: R92.8 Other abnormal and inconclusive findings on diagnostic imaging of breast (principal) | CPT/HCPCS: 76642; 77062; 77066 ==

== ENCOUNTER 2025-04-25 15:15 | Outpatient (AMB) | payer BC, SELFPAY ==
--- NOTE | 2025-04-25 15:16 | MHC.AMNUTRGE ---
Intake Visit Reasons: Initial Nutrition Visit Allergies doxycycline Allergy (Mild, Verified 03/24/25 11:29) mental health Sulfa (Sulfonamide Antibiotics) Allergy (Mild, Verified 03/24/25 11:29) advers reaction Nutrition Presentation Details: Moved from [place] recently so has access to far more gluten free option here. History of Crohn's disease. Has not met with an RD in the past. Has been Gluten Free about 10 years ago as a form of elimination. Has had biopsies in the past on a traditional diet (roughly 2007). Has some predisposition to Celiac. Most concerned about the Pre DM as of now. Last 5 years was unable to exercise or wear CPAP due to an undiagnosed deviated septum which was corrected in October. Feels exponentially better. Has a complete colectomy and a J pouch. Avoids most raw leafy green. Had done whole30 for about 60 days in the past. Takes an MVI and a low dose vitamin D, magnesium, L-methyl folate (has MTHFR gene). MD recommended CoQ10. Had been traveling and eating out a lot earlier this year when retired and then move caused a lot of stress and that is when pt had blood work done. Had been on a choline supplement for a bit last year which caused a GI flare. Does drink a lot of kefir and kombucha. -cooks most meals, Sal[employer]. really doesn't cook a lot of ultraprocessed food. 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) Diet Assmnt Dietary counseling: Mediterranean and other (Fiber controlled) Who buys your food: self and spouse Who prepares/cooks your food: self and spouse Meal frequency: regular: breakfast (eggs, veggie, dawood, back) and snacks (protein bar (noon)) and irregular: lunch (3-4 pm-meat and veg) and dinner (7pm-meat and veg) Lifestyle Eating out: rarely or never Family support: Yes Exercise: Yes (hiking, plans to increase once settled from move) BS Monitoring Most Recent Diabetes Results: Cholesterol, (<200) 225 mg/dL H 03/08/25 HDL Cholesterol, (>40) 82 mg/dL 03/08/25 Triglycerides, (<150) 118 mg/dL 03/08/25 Creatinine, (0.5-1.4) 0.67 mg/dL 03/08/25 BUN, (9-16) 17 mg/dL H 03/08/25 Sodium, (135-145) 143 mmol/L 03/08/25 Potassium, (3.3-5.1) 3.6 mmol/L 03/08/25 Chloride, (96-108) 107 mmol/L 03/08/25 Carbon Dioxide, (22-29) 27 mmol/L 03/08/25 Calcium, (8.4-10.2) 9.5 mg/dL 03/08/25 AST, (5-31) 27 U/L 03/08/25 ALT, (0-31) 24 U/L 03/08/25 Total Protein, (6.5-8.0) 8.0 g/dL 03/08/25 Albumin, (3.5-5.0) 4.6 g/dL 03/08/25 Assessment Nutrition recommendation: initiate supplement (To be discussed at next appointment) and RD nutrition education Diagnosis Nutrition problem #1: altered nutrition labs As related to (etiology) #1: altered metabolism nutri, unsure how to apply info and physical inactivity As evidenced by (sign/symptom) #1: abnormal serum lipids (could be related to recent steroid use) and food recall Monitoring/Goals Nutrition problem monitoring: total energy intake, level of knowledge/skill, total PRO intake, total CHO intake and oral fluids Nutrition goal/outcome: list 3 high fiber foods Outcome progress: progressing Learning/Education Readiness to learn: excellent Stages of change: action Educational materials provided: Yes (snack guid and nutrition for IBS/Crohn's Dz) Date of nutrition screenin04/25/25 Date of nutritional follow-up: 06/21/25 Follow up Follow-up frequency: other (2 months) Time Outcome assessment time: 60 minutes [facility] Medical History Crohn's disease Colon cancer screening Abdominal pain Inflammatory bowel disease Surgical History History of total colectomy Hx of cholecystectomy History of esophagogastroduodenoscopy (EGD) Hx of colonoscopy Family History Father Hypothyroid High blood pressure Mother Hypothyroid H/O: hysterectomy Sister IBD (inflammatory bowel disease) Social History Housing: House Alcohol intake: current Alcohol intake frequency: a few times a month Patient Tobacco Use Status: Former Tobacco user service: No Current occupational status: retired Cognitive needs: No Hearing needs: No Vision needs: Yes (rxglasses) Review of Systems GI Reports dyspepsia (Occasional, eats fast, tries to chew well) and Reports diarrhea (On occasion if there is a contamination when eating out) Telehealth Telehealth Telehealth Platform: Other (please specify) (zoom) Location of provider rendering services: practice address Location of patient: address on file Patient Identification confirmed using: Name, : Yes Telehealth method: video Patient verbally consented to treatment: Yes Patient informed of any privacy concerns related to visit: Yes Minutes spent on Phone/Video with Pt.: 60 Assessment & Plan Assessment & Plan (1) Inflammatory bowel disease: Code(s): K52.9 - Noninfective gastroenteritis and colitis, unspecified Category: Medical Plan: 1. resume exercise regimen 2. reduce ultra-processed foods and resume higher fiber intake via foods typically tolerated 3. consider keeping a 2-3 day food log for next appointment Coding Level of Care Code Nutr Indiv Intake (33259) Diagnoses Inflammatory bowel disease K52.9
--- OUTSIDE RECORDS SUMMARY | 2025-04-25 17:22 | XMS_ITS | Encounter Summary ---
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
--- OUTSIDE RECORDS SUMMARY | 2025-04-25 17:22 | XMS_ITS | Clinical Summary ---
Author Organization [facility] Health Address [address] [address] [facility] [place] [address] Care Team Providers Care Melt Superintendant Name Role Phone Unavailable Primary Care Provider Unavailabl e Social History Tobacco Use Types Packs/Day Years Used Date Smoking Tobacco: Never Assessed Comments Unknown Sex and Gender Information Value Date Recorded Sex Assigned at Not on file Legal Sex Female 9:06 PM PST Gender Identity Not on file Sexual Orientation Not on file Plan of Treatment Not on file Insurance [facility] PPO
== END 2025-04-25 16:08 | disposition home or self-care (01) ==
LOC: HO.HMCCN 15:15
PROVIDERS: PCP Student in an Organized Health Care Education/Training Program; Visit Provider Dietitian, Registered
DX: K52.9 Noninfective gastroenteritis and colitis, unspecified (principal)

== ENCOUNTER 2025-05-03 10:58 | Outpatient (REF) | payer BC, SELFPAY | END 2025-05-03 10:59 | disposition home or self-care (01) | LOC: HO.LAB 10:58 | PROVIDERS: PCP Student in an Organized Health Care Education/Training Program; Visit Provider Nurse Practitioner Family | DX: K50.90 Crohn's disease, unspecified, without complications (principal) | CPT/HCPCS: 36415; 86140 ==

== ENCOUNTER 2025-05-16 14:42 | Outpatient (REF) | payer BC, SELFPAY ==
--- OUTSIDE RECORDS SUMMARY | 2025-05-16 18:00 | XMS_ITS | Clinical Summary ---
Author Organization [facility] Health Address [address] [address] [place] [address] Care Team Providers Care Top Lift Scourer Name Role Phone Unavailable Primary Care Provider Unavailabl e Social History Tobacco Use Types Packs/Day Years Used Date Smoking Tobacco: Never Assessed Comments Unknown Sex and Gender Information Value Date Recorded Sex Assigned at Not on file Legal Sex Female 9:06 PM PST Gender Identity Not on file Sexual Orientation Not on file Plan of Treatment Not on file Insurance [facility] PPO
--- OUTSIDE RECORDS SUMMARY | 2025-05-16 18:00 | XMS_ITS | Encounter Summary ---
Author Organization [facility] Health Address [address] [place] [address] Care Team Providers Care Slabber Light Name Role Phone Unavailable Primary Care Provider Unavailabl e Prior Encounters Date Type Department Care Team Description 07/05/2019 Converted 13x Documents [facility] [address] [place] [address] <No scans attached> 07/05/2019 Converted CPS Chart Documents [facility] [address] [place] [address] <No scans attached> Plan of [...] CDT CANCELLED APPOINTMENT Routine 07/10/2020 2:00 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 PPO
[2025-05-22 02:04] LABS: Calprotectin, Fecal 10 mcg/g
== END 2025-05-16 14:43 | disposition home or self-care (01) ==
LOC: HO.LNP 14:42
PROVIDERS: Visit Provider Nurse Practitioner Family
DX: K50.90 Crohn's disease, unspecified, without complications (principal)
CPT/HCPCS: 83993

== ENCOUNTER 2025-05-19 14:15 | Outpatient (AMB) | payer BC, SELFPAY ==
--- NOTE | 2025-05-19 14:25 | A.OFFVIS_ITS ---
Vital Signs 05/19/25 14:32 Height 5 ft 8 in Weight 190 lb BMI 28.9 BP 142/70 H Blood Pressure Location Lt brachial Position Sitting Pulse 72 Intake Visit Reasons: 2m Intake Note: Patient follow up for abdominal pain and lab/fecal results. Patient denies any GI issues for today. Veterans Employment Representative Required: No Accompanied by: Self / Same As Patient Allergies doxycycline Allergy (Mild, Verified 05/19/25 15:40) mental health Sulfa (Sulfonamide Antibiotics) Allergy (Mild, Verified 05/19/25 15:40) advers reaction HPI HPI 2m: Details: Patient is a 62-year-old female with PMH of diabetes, thyroid disease, hyperlipidemia and GORDO on CPAP f/u for ongoing management of crohn's disease s/p total colectomy with J-pouch, ongoing infliximab (Remicade) infusions. She is accompanied by her . Pt reports feeling better overall following most recent Remicade infusion. Leading up to infusion, describes ~3 wks of increasing abdominal discomfort, intermittent pain, and ?upset? GI tract, culminating in 2 days of acute diarrhea following restaurant meal?suspected possible foodborne illness or gluten exposure (known non-celiac gluten sensitivity per pt history). Diarrheal sx self-resolved after brief loperamide use. No fevers reported; received flu and COVID vax 2 days prior to appointment, experienced self-limiting systemic response. No new or persistent rectal bleeding; periodic minor J pouch cuff irritation but no blood visible in stool. Denies recent hospitalizations/UC/ED visits or major flares. Surveillance status, records transfer, and access to infusion coverage discussed; pt compliant with tx plan and prepared for continued surveillance. IBD SUMMARY: YEAR OF DIAGNOSIS:1991. Initially diagnosed UC. Later determine Crohn's disease DISEASE EXTENT: large and small intestine LAST COLONOSCOPY FINDINGS: FLEX SIG 11/14/23 (outside PCP Note) single ulceration of proximal limb J-pouch, few aphthous ulcers in J pouch along anastomotic, endoscopy examination appears most consistent with benign anastomatoic ulcer due to blood supply to this region rather than from Crohn's disease. However, there may be mild inflammation due to Crohn's disease as well. NEXT COLON DUE: 10/2025 EXTRAINTESTINAL MANIFESTATIONS: None reported GI SURGERY: Total colectomy 06/16/1998, ileoanal anastomosis, J-pouch 1998 PAST TREATMENTS: Prednisone, Budesonide CURRENT THERAPY: Remicade (started 2006) every 8 weeks. VACCINATIONS (mean no live vaccines) : Flu shot: 05/17/25 COVID shot: 05/17/25 Hep A/B serology /vaccination: TBD TB screen: TBD pneumonia (PVC 20 recommended): TBD tetanus/Tdap: TBD Shingrix :TBD PFSH Medical History (Updated 05/20/25 @ 10:24 by Sarah Reyez CNP) Hypothyroidism Crohn's disease Colon cancer screening Abdominal pain Inflammatory bowel disease Surgical History (Updated 05/20/25 @ 11:13 by Sarah Reyez CNP) S/P colectomy History of total colectomy Hx of cholecystectomy History of esophagogastroduodenoscopy (EGD) Hx of colonoscopy Family History Father Hypothyroid High blood pressure Mother Hypothyroid H/O: hysterectomy Sister IBD (inflammatory bowel disease) Social History Housing: House Alcohol intake: current Alcohol intake frequency: a few times a month Patient Tobacco Use Status: Former Tobacco user service: No Current occupational status: retired Cognitive needs: No Hearing needs: No Vision needs: Yes (rxglasses) Review of Systems Const Reports as per HPI ENT Reports as per HPI Card Reports as per HPI Resp Reports as per HPI GI Reports as per HPI Reports as per HPI Physical Exam Vital Signs: Last Vital Signs Pulse 72 05/19/25 14:32 BP 142/70 H 05/19/25 14:32 BMI result Body Mass Index 28.9 Const General: healthy appearing, no acute distress and well developed Nutritional Appearance: average body habitus Orientation/consciousness: patient oriented x3 HEENT Head: Yes normal to inspection, Yes normocephalic and Yes atraumatic Face and sinus: Yes normal facial exam Eyes General: appearance normal, both eyes and all related structures Neck Neck: Yes normal visual inspection Resp Effort & Inspection: normal respiratory effort, able to speak in complete sentences, no tracheal deviation and symmetric chest movement Cardio Jugular venous distension: no JVD Neuro General: patient oriented x3 Gait exam (Neuro): Normal gait present Psych Appearance: grossly normal Mental Status: mental status grossly normal Speech and movement: Normal speech and movement present Affect: normal affect Attitude: cooperative Thought process: Normal thought process present Thought content: Normal thought content present Insight: Good insight present (Psych) Judgement: Good judgement present (Psych) Assessment & Plan Assessment & Plan (1) Crohn's disease: Code(s): K50.90 - Crohn's disease, unspecified, without complications Category: Medical Qualifiers: Gastrointestinal tract location: small and large intestine Digestive disease complication type: without complication Qualified Code(s): K50.80 - Crohn's disease of both small and large intestine without complications Plan: Improving; pt reports clinical response following infusion and no evidence of IBD exacerbation or infection at present. Recent diarrhea likely dietary/foodborne with full resolution - Additional testing: - Review pending stool results ( fecal calprotectin) - Plan repeat surveillance flex sig (October 2025), or sooner if new/worsening sx or abnormal labs/stool results - Option to repeat infliximab level and anti-drug Ab if clinically indicated pending further sx/lab findings Medications: - Continue infliximab (Remicade) infusions q8w; maintain current dosing - Continue loperamide PRN for acute, self-limited diarrhea - No new meds initiated or adjustments at this time Lifestyle Recommendations: - Reinforce dietary avoidance of gluten when possible, limit high fiber intake if causing sx (as pt has noted mild food intolerance, bloating/discomfort) - Maintain hydration; continue current self-monitoring for triggers Referrals / Coordination of Care: - Ongoing assistance re: infusion coverage/patient assistance program?coordinate w/ infusion clinic nurse navigator as needed - Continue efforts to obtain full outside records (GI, surgical, breast center) Follow-Up Plan: - Schedule routine surveillance flexible sigmoidoscopy October 2025 - F/u after Endoscopy or sooner if sx worsen, abnormal labs/stool results, or new concerns arise - Maintain portal communication for interim updates, lab review (2) S/P colectomy: Comment: Total colectomy 06/16/1998, ileoanal anastomosis J-pouch 1998 Code(s): Z90.49 - Acquired absence of other specified parts of digestive tract Category: Surgical Plan: J-Pouch. Stable?minor, intermittent irritation, no brenda bleeding Rationale: Sx not worsening, no new bleeding or signs of infection Additional testing: None at present unless new/recurrent sx Medications: None indicated specifically Lifestyle: Continue routine hygiene, avoid dietary triggers known to exacerbate irritation Referrals: None needed at present F/U Plan: Monitor sx, report any increase in irritation or new blood per rectum Plan Follow-up flex sigmoidoscopy or sooner as needed Time: I spent a total of 22 minutes on the date of encounter which includes: Preparing to see the patient (reviewed previous documentation, test results and medical history) Performing a medically appropriate exam and/or evaluation Ordering medications, tests, and procedures Documenting clinical information in the health record Orders: Orders Other [place] [facility] [place] K50.80 - Crohn's disease of both small and large intestine without complications Referrals GI Procedure Notification K50.90 - Crohn's disease, unspecified, without complications, Z12.11 - Encounter for screening for malignant neoplasm of colon, Z90.49 - Acquired absence of other specified parts of digestive tract Coding Level of Care Code Established Pt Est Pt Level 3 (85323) Patient Type Established Diagnoses Crohn's disease of both small and large intestine without complication K50.80 Gastrointestinal tract location: small and large intestine Digestive disease complication type: without complication S/P colectomy Z90.49
[2025-05-19 14:32] VITALS: BP 142/70; PULSE 72; BMI 28.9
== END 2025-05-19 15:31 | disposition home or self-care (01) ==
LOC: HO.HGI 14:16
PROVIDERS: PCP Student in an Organized Health Care Education/Training Program; Visit Provider Nurse Practitioner Family
DX: K50.80 Crohn's disease of both small and large intestine without complications (principal); Z90.49 Acquired absence of other specified parts of digestive tract
CPT/HCPCS: 99213

== ENCOUNTER 2025-05-19 15:32 | Outpatient (AMB) | payer BC, SELFPAY ==
--- NOTE | 2025-05-19 15:34 | A.OFFVIS_ITS ---
Vital Signs 05/19/25 15:39 Height 5 ft 8 in Weight 192 lb 14.472 oz BMI 29.3 BP 134/74 Blood Pressure Location Rt brachial Position Sitting Pulse 78 Pulse Source Pulse Oximeter Pulse Oximetry (%) 98 Oxygen Delivery Method Room Air Intake Visit Reasons: Hypothyroidism Intake Note: New patient internally referred by PCP for Hypothyroidism, recently moved from [place] to [place] needs to establish care with an Mushroom Picker. Veterinary Assistant Technician Required: No Accompanied by: Self / Same As Patient Allergies doxycycline Allergy (Mild, Verified 05/19/25 15:40) mental health Sulfa (Sulfonamide Antibiotics) Allergy (Mild, Verified 05/19/25 15:40) advers reaction Medication List - Last Reconciled 05/19/25 by Niels Jenkins MD cholecalciferol (vitamin D3) 25 mcg PO DAILY coenzyme Q10 (Co Q-10) 200 mg PO DAILY infliximab (Remicade) 431 mg IV Q8W levothyroxine (Tirosint) 75 mcg PO DAILY liothyronine 5 mcg PO DAILY losartan 25 mg PO DAILY magnesium oxide 400 mg PO DAILY multivitamin 1 tab PO DAILY HPI Comments Details: The patient is a 60 year old female presenting for management of her hypothyroidism. She was diagnosed with hypothyroidism around 2000 or 2001 and was previously managed by an ski tow operator in [place] for about five to seven years. For the past five years, her thyroid levels have been stable on a combination of Tirosint 75 mcg and Cytomel 5 mcg daily. She reports feeling well on this regimen. The combination therapy was started after her thyroid levels were unstable on prior medication, with a suspicion of poor absorption related to her gastrointestinal history. The patient has a history of Crohn's disease and has a J-pouch. She has a strong family history of hypothyroidism. She is not aware if she was ever tested for Meagan's antibodies but notes that a [employer] genetic test did not show markers for it. Other medical history includes sleep apnea and she has recently lost a couple of pounds. She denies any history of high cholesterol. The patient is retired. First diagnosed with Hypothyroidism since early 1999s . Saw rivera in [place] with labs revealing []. Currently using Tirosint 75 mcg and Cytomel 5 mcg Denies -fatigue, -weight gain, -cold intolerance, -dry skin, -hair loss, - constipation. There is no hx of hyperlipidemia . Denies obstructive sx of goiter . Denies consuming any kelp or seaweed. Denies taking amiodarone. Biotin: No Strong family hx of hypothyroidism Labs: TSH equals 0.79 on 03/08/2025 [facility] [place] Medical History (Updated 05/19/25 @ 15:37 by Niels Jenkins MD) Hypothyroidism Crohn's disease Colon cancer screening Abdominal pain Inflammatory bowel disease Surgical History S/P colectomy History of total colectomy Hx of cholecystectomy History of esophagogastroduodenoscopy (EGD) Hx of colonoscopy Family History Father Hypothyroid High blood pressure Mother Hypothyroid H/O: hysterectomy Sister IBD (inflammatory bowel disease) Social History Housing: House Alcohol intake: current Alcohol intake frequency: a few times a month Patient Tobacco Use Status: Former Tobacco user service: No Current occupational status: retired Cognitive needs: No Hearing needs: No Vision needs: Yes (rxglasses) Physical Exam Vital Signs: Last Vital Signs Pulse 78 05/19/25 15:39 BP 134/74 05/19/25 15:39 Pulse Ox 98 05/19/25 15:39 Oxygen Delivery Method Room Air 05/19/25 15:39 BMI result Body Mass Index 29.3 HEENT reveals absence of lid lag , stare or proptosis or eyebrow loss. Thyroid gland measure 15 gms . No nodules or tenderness palpated. There is no cervical adenopathy palpated. Lungs CTA. Heart S1, S2 Reg R/R -M/R/G. Abdominal exam benign. Skin exam reveals absence of dryness or thyroid dermopathy or vitiligo. Nail exam reveals absence of thyroid acropachy or oncholysis. Neurologic exam reveals 2+ reflexes . Muscle Strength is 5/5 proximally. There are no tremors in upper extremities. Assessment & Plan Assessment & Plan (1) Hypothyroidism: Code(s): E03.9 - Hypothyroidism, unspecified Category: Medical Plan: This is a 60-year-old white female with a history of hypothyroidism being replaced with 75 mcg of Tirosint and 5 mcg of T3 we will appears to be clinically and biochemically euthyroid Plan is to continue the current therapy. We will try to obtain old endocrine records from [place] looking for previous TSH levels as well as anti peroxidase antibodies to see if the hypothyroidism is permanent. 1. Hypothyroidism The patient is a 60-year-old female with long-standing hypothyroidism, who is clinically euthyroid and biochemically stable on combination therapy with Tirosint 75 mcg and Cytomel 5 mcg daily. Her current stability, after a history of poor control, is excellent, and the combination therapy was likely necessary due to malabsorption related to her history of Crohn's disease with a J-pouch. Given that she is feeling well and her levels are stable, no changes will be made to her regimen at this time We will attempt to obtain her prior medical records from her ski tow operator in [place] to investigate the initial diagnosis and treatment history. Medication refills will be managed through this office. Follow-up is recommended in one year, or sooner if issues arise. The patient had an opportunity to ask questions regarding treatment plan. The patient expressed understanding and agreement with the above treatment plan. Patient was informed and verbally consented to the use of an ambient scribe for clinic note documentation during this visit. Coding Level of Care Code New Pt Level 4 (16090) Diagnoses Hypothyroidism E03.9
[2025-05-19 15:39] VITALS: BP 134/74; PULSE 78; O2SAT 98; BMI 29.3
--- OUTSIDE RECORDS SUMMARY | 2025-05-19 21:39 | XMS_ITS | Clinical Summary ---
Author Organization [facility] Address [address] [address] [place] [address] Care Team Providers Care Route Delivery Supervisor Name Role Phone Unavailable Primary Care Provider Unavailabl e Social History Tobacco Use Types Packs/Day Years Used Date Smoking Tobacco: Never Assessed Comments Unknown Sex and Gender Information Value Date Recorded Sex Assigned at Not on file Legal Sex Female 9:06 PM PST Gender Identity Not on file Sexual Orientation Not on file Plan of Treatment Not on file Insurance [facility] PPO
--- OUTSIDE RECORDS SUMMARY | 2025-05-19 21:39 | XMS_ITS | Encounter Summary ---
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 PPO
== END 2025-05-19 16:15 | disposition home or self-care (01) ==
LOC: HO.ENCR 15:32
PROVIDERS: PCP Student in an Organized Health Care Education/Training Program; Visit Provider Internal Medicine Endocrinology, Diabetes & Metabolism
DX: E03.9 Hypothyroidism, unspecified (principal)
CPT/HCPCS: 99204

== ENCOUNTER 2025-05-31 13:04 | Outpatient (REF) | payer BC, SELFPAY | END 2025-05-31 13:05 | disposition home or self-care (01) | LOC: HO.LAB 13:04 | PROVIDERS: PCP Student in an Organized Health Care Education/Training Program; Visit Provider Nurse Practitioner Family | DX: K50.80 Crohn's disease of both small and large intestine without complications (principal) | CPT/HCPCS: 36415; 80230; 83520 ==